=== PATIENT | female | born 1970 | race American Indian/Alaskan Native ===

== ENCOUNTER 2020-05-21 13:14 | Emergency (ER) | payer OTHER ==
--- NOTE | 2020-05-21 14:13 | Event Note ---
ED Screening Note ED Screening Note: states her BP was elevated states she has lightheadedness, nausea, CP has never taken blood pressure medication states she has not seen a PCP in 8 years no fever, vomiting, SOB, cough PMHx none no daily meds no allergies to meds LNMP: 04/08/2020 +former smoker This initial assessment/diagnostic orders/clinical plan/treatment(s) is/are subject to change based on patients health status, clinical progression and re- assessment by fellow clinical providers in the ED. Further treatment and workup at subsequent clinical providers discretion. Patient/guardian urged not to elope from the ED as their condition may be serious if not clinically assessed and managed. Initial orders include: labs, UA, EKG
--- NOTE | 2020-05-21 15:00 | XRay Report ---
CHEST 2 VIEWS INDICATION / CLINICAL INFORMATION: CP. COMPARISON: None available. FINDINGS: SUPPORT DEVICES: None. HEART / MEDIASTINUM: Borderline heart size. LUNGS / PLEURA: No significant pulmonary or pleural abnormality. No pneumothorax. ADDITIONAL FINDINGS: No significant additional findings. IMPRESSION: 1. Borderline heart size. No acute abnormality identified. Signer Name: Ana Ramos MD Signed: 05/21/2020 2:56 PM Workstation Name: [id number]
[2020-05-21 15:06] LABS: Basophils % (Auto) 0.8 % (0.0-1.8); Eosinophils # (Auto) 0.4 K/mm3 (0.0-0.4); Eosinophils % (Auto) 6.1 % (0.0-4.3); Hemoglobin 13.8 gm/dl (10.1-14.3); Lymphocytes # (Auto) 2.4 K/mm3 (1.2-5.4); Lymphocytes % (Auto) 40.1 % (13.4-35.0); Mean Corpuscular HGB Conc 34 % (30-34); Mean Corpuscular Volume 93 fl (79-97); Monocytes # (Auto) 0.3 K/mm3 (0.0-0.8); Monocytes % (Auto) 5.8 % (0.0-7.3); Platelet Count 169 K/mm3 (140-440); Red Cell Distribution Width 14.6 % (13.2-15.2)
[2020-05-21] MEDS ORDERED: amLODIPine 5 MG TAB PO ONE (15:16)
[2020-05-21] MEDS ORDERED: ACETAMINOPHEN 325 MG TAB PO ONE (15:16)
[2020-05-21 15:18] LABS: Bilirubin,Urine NEG (Negative); Blood,Urine NEG (Negative); Color,Urine Yellow (Yellow); Mucus,Urine FEW /HPF; Urobilinogen,Urine < 2.0 mg/dL (<2.0); WBC,Urine < 1.0 /HPF (0.0-6.0)
--- NOTE | 2020-05-21 15:22 | Emergency Department Report ---
ED Dizziness HPI - General Chief Complaint: Dizziness Stated Complaint: ELEVATED BLOOD PRESSURE Time Seen by Provider: 05/21/20 14:10 Source: patient Mode of arrival: Ambulatory Limitations: No Limitations - History of Present Illness Initial Comments: 49-year-old female with a history of tobacco abuse presents to the ER today with complaints of elevated blood pressure and dizzy. Patient states that for the past couple weeks she notes her blood pressure has been elevated. She states that she decided to check her blood pressure because she has been having intermittent dizziness for the past couple weeks. She states that her highest measured blood pressure was 180s over 100s. She denies any prior history of high blood pressure. She reports associated mild frontal headache intermittently. She states that she is also been having intermittent sharp left-sided chest pain that sometimes take her breath away for the past 2 to 3 months, as well as intermittent fluttering for the past 2 to 3 months. She states that she had Covid back in February and she has been having symptoms of shortness of breath since February but nothing worse recently. She states that this is her first time been evaluated since has been having the chest pain and dizziness and headache. She denies any speech changes, vision changes, focal weakness, numbness, tingling, vomiting or any other symptoms at this time. She states that she stopped smoking 16 days ago. She denies any history of coronary artery disease, lung disease, CVA/TIA, diabetes or any other si gnificant past history. Complaint: dizziness, other (Elevated Blood pressure) -: Sudden - Related Data Previous Rx's Medication Instructions Recorded Last Taken Type Amlodipine Besylate [Norvasc] 5 mg PO DAILY #30 tablet 05/21/20 Unknown Rx Allergies Allergy/AdvReac Type Severity Reaction Status Date / Time No Known Allergies Allergy Unverified 05/21/20 13:21 ED Review of Systems ROS: Stated complaint: ELEVATED BLOOD PRESSURE Other details as noted in HPI Comment: All other systems reviewed and negative Constitutional: denies: chills, fever Eyes: denies: eye pain, eye discharge, vision change ENT: denies: ear pain, throat pain Respiratory: shortness of breath (Since she had Covid back in February 2020). denies: cough, orthopnea, SOB with exertion, SOB at rest, wheezing Cardiovascular: chest pain (Left-sided, sharp in nature for the past 2 to 3 months), palpitations (Intermittently for the past 2 to 3 months). denies: dyspnea on exertion, orthopnea, edema, syncope Gastrointestinal: denies: abdominal pain, nausea, vomiting, diarrhea, constipation, hematemesis, melena, hematochezia Genitourinary: denies: urgency, dysuria, discharge Musculoskeletal: denies: back pain, joint swelling, arthralgia Skin: denies: rash, lesions Neurological: headache. denies: weakness, numbness, paresthesias, confusion, abnormal gait, vertigo Psychiatric: denies: anxiety, depression ED Past Medical Hx - Past Medical History Previous Medical History?: No - Surgical History Past Surgical History?: No - Medications Home Medications: Home Medications Medication Instructions Recorded Confirmed Last Taken Type Amlodipine Besylate [Norvasc] 5 mg PO DAILY #30 tablet 05/21/20 Unknown Rx ED Physical Exam - General Limitations: No Limitations General appearance: alert, in no apparent distress - Head Head exam: Present: atraumatic, normocephalic, normal inspection - Eye Eye exam: Present: normal appearance, PERRL, EOMI Pupils: Present: normal accommodation - ENT ENT exam: Present: normal exam, mucous membranes moist - Neck Neck exam: Present: normal inspection, full ROM - Respiratory Respiratory exam: Present: normal lung sounds bilaterally. Absent: respiratory distress - Cardiovascular Cardiovascular Exam: Present: regular rate, normal rhythm, normal heart sounds - GI/Abdominal GI/Abdominal exam: Present: soft. Absent: distended, tenderness, guarding, rebound - Extremities Exam Extremities exam: Present: normal inspection. Absent: pedal edema, calf tenderness - Neurological Exam Neurological exam: Present: alert, oriented X3, CN II-XII intact, normal gait. Absent: motor sensory deficit - Psychiatric Psychiatric exam: Present: normal affect, normal mood ED Course Vital Signs 05/21/20 05/21/20 05/21/20 13:22 15:25 15:26 Temperature 97.9 F Pulse Rate 84 84 Respiratory 16 18 Rate Blood Pressure 182/101 182/101 Blood Pressure [Left] O2 Sat by Pulse 100 Oximetry 05/21/20 05/21/20 17:45 17:46 Temperature Pulse Rate 72 Respiratory 17 Rate Blood Pressure Blood Pressure 170/94 [Left] O2 Sat by Pulse 99 Oximetry ED Medical Decision Making - Lab Data Result diagrams: 05/21/20 14:53 05/21/20 14:53 - EKG Data EKG shows normal: sinus rhythm Rate: normal (74) - EKG Data Interpretation: nonspecific ST-T wave malena, other (Inverted T waves lat leads) - Radiology Data Radiology results: report reviewed Patient: MUKUND JON MR#: [id number] : 1970 Acct:[id number] Age/Sex: 49 / F A DM Date: 05/21/20 Loc: ED Attending Dr: Ordering Physician: NICOL WONG Date of Service: 05/21/20 Procedure(s): XR chest routine 2V Accession Number(s): [id number] cc: NICOL WONG Fluoro Time In Minutes: CHEST 2 VIEWS INDICATION / CLINICAL INFORMATION: CP. COMPARISON: None available. FINDINGS: SUPPORT DEVICES: None. HEART / MEDIASTINUM: Borderline heart size. LUNGS / PLEURA: No significant pulmonary or pleural abnormality. No pneumothorax. ADDITIONAL FINDINGS: No significant additional findings. IMPRESSION: 1. Borderline heart size. No acute abnormality identified. Signer Name: Ana Ramos MD Signed: 05/21/2020 2:56 PM Workstation Name: [id number] Transcribed By: [facility] Dictated By: Ana Ramos MD Electronically Authenticated By: Ana Ramos MD Signed Date/Time: 05/21/20 5971 - Medical Decision Making The patient's care has been transferred to and accepted by[Aminah SAMPSON]. We discussed: The patient's chief complaints; labs and imaging that have been completed and those that are still pending; any treatment provided and the patient's response to treatment; any significant change in condition; the treatment plan prior to the transfer of care. The accepting provider will follow up on all pending labs and imaging and make any necessary changes to the current impression and/or treatment plan. The accepting physician/midlevel is now responsible for the patient's care and final disposition. Critical care attestation.: If time is entered above; I have spent that time in minutes in the direct care of this critically ill patient, excluding procedure time. ED Disposition Clinical Impression: Uncontrolled hypertension, Chest pain, atypical, Dizziness Disposition: DC-01 TO HOME OR SELFCARE Is pt being admited?: No Does the pt Need Aspirin: No Condition: Stable Instructions: Nonspecific Chest Pain, Adult, Hypertension, Adult, Gjta-by-Dljd, Dizziness, [id number]-rm-[id number], Hypertension (ED) Additional Instructions: Start taking the norvasc as prescribed. I recommend taking baby 81 mg asa daily. It is important that you follow up with the PCP listed on your d/c instructions for continued monitoring of your BP. Return to ED if symptoms worsens or changes in any way. Prescriptions: Amlodipine Besylate [Norvasc] 5 mg PO DAILY #30 tablet Referrals: YANELI TREVINO MD [Staff Physician] - 3-5 Days Time of Disposition: 17:13
[2020-05-21 15:31] LABS: Alanine Aminotransferase 18 units/L (7-56); Albumin 4.3 g/dL (3.9-5); BUN/Creatinine Ratio 18; Blood Urea Nitrogen 18 mg/dL (7-17); Calcium 9.5 mg/dL (8.4-10.2); Hemolysis Index 11
[2020-05-21 17:47] VITALS: BP 170/94
== END 2020-05-21 17:49 | disposition home or self-care (01) ==
LOC: ED 13:14
DX: R07.89 Other chest pain (principal); R42 Dizziness and giddiness; I10 Essential (primary) hypertension; Z79.899 Other long term (current) drug therapy
CPT/HCPCS: 36415; 71046; 80053; 81001; 84484; 85025; 93005

== ENCOUNTER 2020-09-15 08:14 | Emergency (ER) | payer OTHER ==
[2020-09-15 08:21] VITALS: BP 116/72
[2020-09-15] MEDS ORDERED: ONDANSETRON 4 MG/2 ML INJ IV ONE (09:08)
[2020-09-15] MEDS ORDERED: FAMOTIDINE 20 MG/2 ML INJ IV ONE (09:08)
[2020-09-15] MEDS ORDERED: DICYCLOMINE 20 MG TAB PO ONE (09:08)
[2020-09-15] MEDS ORDERED: SODIUM CHLORIDE 0.9% 1000 ML 1,000 ML IV ONE (09:08)
[2020-09-15] MEDS ORDERED: MORPHINE 4 MG/1 ML INJ IV ONE (09:08)
[2020-09-15 09:15] LABS: Basophils % (Auto) 0.4 % (0.0-1.8); Eosinophils # (Auto) 0.2 K/mm3 (0.0-0.4); Eosinophils % (Auto) 2.8 % (0.0-4.3); Hematocrit 37.6 % (30.3-42.9); Hemoglobin 12.9 gm/dl (10.1-14.3); Lymphocytes # (Auto) 1.7 K/mm3 (1.2-5.4); Lymphocytes % (Auto) 19.7 % (13.4-35.0); Mean Corpuscular HGB Conc 34 % (30-34); Mean Corpuscular Volume 93 fl (79-97); Monocytes # (Auto) 0.7 K/mm3 (0.0-0.8); Monocytes % (Auto) 7.6 % (0.0-7.3); Platelet Count 223 K/mm3 (140-440); Red Blood Count 4.03 M/mm3 (3.65-5.03); Red Cell Distribution Width 13.5 % (13.2-15.2)
[2020-09-15 09:24] LABS: Alanine Aminotransferase 49 units/L (7-56); Albumin 4.2 g/dL (3.9-5); BUN/Creatinine Ratio 17; Blood Urea Nitrogen 19 mg/dL (7-17); Calcium 9.7 mg/dL (8.4-10.2); Hemolysis Index 8
--- NOTE | 2020-09-15 09:49 | Emergency Department Report ---
ED Abdominal Pain HPI - General Chief Complaint: Abdominal Pain Stated Complaint: LOWER STOMACH CRAMPS, DIZZY, CAN'T BREATH Time Seen by Provider: 09/15/20 08:32 Source: patient Mode of arrival: Ambulatory Limitations: No Limitations - History of Present Illness Initial Comments: This is a 49-year-old female nontoxic, well nourished in appearance, no acute signs of distress presents to the ED with c/o of nausea and vomiting and abdominal pain 1 week. Patient describes vomiting as food content and yellow gastric acid. Patient describes abdominal pain as cramping and aching with level of 8/10 diffuse. Patient denies chest pain, short of breath, fever, hemoptysis, blood in stool, chills, headache, stiff neck, numbness or tingling. Patient denies any diarrhea. Patient stated has constipation but has taken OTC medication and had a bowel movement yesterday. Denies any blood in stool. Patient denies any recent travels. Patient denies any drug allergies. PMH includes HTN. MD Complaint: abdominal pain -: week(s) Location: diffuse Radiation: none Migration to: no migration Severity: mild Severity scale (0 -10): 8 Quality: cramping, aching Consistency: constant Improves With: nothing Worsens With: nothing Associated Symptoms: nausea, vomiting, constipation. denies: diarrhea, fever, chills, dysuria, hematemesis, hematochezia, melena, hematuria, anorexia, syncope - Related Data Previous Rx's Medication Instructions Recorded Last Taken Type Amlodipine Besylate [Norvasc] 5 mg PO DAILY #30 tablet 05/21/20 Unknown Rx Naproxen 500 mg PO Q12H PRN #12 tablet 09/15/20 Unknown Rx Ondansetron [Zofran Odt] 4 mg PO Q8H PRN #12 tab.rapdis 09/15/20 Unknown Rx Allergies Allergy/AdvReac Type Severity Reaction Status Date / Time No Known Allergies Allergy Unverified 05/21/20 13:21 ED Review of Systems ROS: Stated complaint: LOWER STOMACH CRAMPS, DIZZY, CAN'T BREATH Other details as noted in HPI Comment: All other systems reviewed and negative Constitutional: denies: chills, fever Eyes: denies: eye pain, eye discharge, vision change ENT: denies: ear pain, throat pain Respiratory: denies: cough, shortness of breath, wheezing Cardiovascular: denies: chest pain, palpitations Endocrine: no symptoms reported Gastrointestinal: abdominal pain, nausea, vomiting, constipation. denies: diarrhea, hematemesis, melena, hematochezia Genitourinary: denies: urgency, dysuria, discharge Musculoskeletal: denies: back pain, joint swelling, arthralgia Skin: denies: rash, lesions Neurological: denies: headache, weakness, paresthesias Psychiatric: denies: anxiety, depression Hematological/Lymphatic: denies: easy bleeding, easy bruising ED Past Medical Hx - Past Medical History Hx Hypertension: Yes - Surgical History Past Surgical History?: No - Social History Smoking Status: Never Smoker Substance Use Type: None - Medications Home Medications: Home Medications Medication Instructions Recorded Confirmed Last Taken Type Amlodipine Besylate [Norvasc] 5 mg PO DAILY #30 tablet 05/21/20 Unknown Rx Naproxen 500 mg PO Q12H PRN #12 tablet 09/15/20 Unknown Rx Ondansetron [Zofran Odt] 4 mg PO Q8H PRN #12 tab.rapdis 09/15/20 Unknown Rx ED Physical Exam - General Limitations: No Limitations General appearance: alert, in no apparent distress - Head Head exam: Present: atraumatic, normocephalic - Eye Eye exam: Present: normal appearance - Neck Neck exam: Present: normal inspection, full ROM. Absent: lymphadenopathy - Respiratory Respiratory exam: Present: normal lung sounds bilaterally. Absent: respiratory distress, wheezes, rales, rhonchi, stridor, chest wall tenderness, accessory muscle use, decreased breath sounds, prolonged expiratory - Cardiovascular Cardiovascular Exam: Present: regular rate, normal rhythm, normal heart sounds. Absent: bradycardia, tachycardia, irregular rhythm, systolic murmur, diastolic murmur, rubs, gallop - GI/Abdominal GI/Abdominal exam: Present: soft, tenderness (Diffuse with worse to bilateral lower abdomen), normal bowel sounds. Absent: distended, guarding, rebound, rigid, diminished bowel sounds - Extremities Exam Extremities exam: Present: normal inspection, full ROM, normal capillary refill. Absent: tenderness - Back Exam Back exam: Present: normal inspection, full ROM. Absent: tenderness, CVA tenderness (R), CVA tenderness (L), muscle spasm, paraspinal tenderness, vertebral tenderness, rash noted - Neurological Exam Neurological exam: Present: alert, oriented X3, normal gait - Psychiatric Psychiatric exam: Present: normal affect, normal mood - Skin Skin exam: Present: warm, dry, intact, normal color. Absent: rash ED Course Vital Signs 09/15/20 08:19 Temperature 98.6 F Pulse Rate 86 Respiratory 18 Rate Blood Pressure 116/72 O2 Sat by Pulse 99 Oximetry - Reevaluation(s) Reevaluation #1: 09/15/20 09:48 Patient is speaking in full sentences with no signs of distress noted. - Consultations Consultation #1: 09/15/20 13:33 Patient has been consulted with Virginia Wooten (DOCUMENT MANAGEMENT ANALYST) about patient hist ory, physical exam, and labs/imaging results and needs a hysterectomy and to follow-up in office in 3 to 5 days. ED Medical Decision Making - Lab Data Result diagrams: 09/15/20 08:49 09/15/20 08:49 Lab Results 09/15/20 09/15/20 09/15/20 Range/Units 08:49 08:49 08:49 WBC 8.6 (4.5-11.0) K/mm3 RBC 4.03 (3.65-5.03) M/mm3 Hgb 12.9 (10.1-14.3) gm/dl Hct 37.6 (30.3-42.9) % MCV 93 (79-97) fl MCH 32 (28-32) pg MCHC 34 (30-34) % RDW 13.5 (13.2-15.2) % Plt Count 223 (140-440) K/mm3 Lymph % (Auto) 19.7 (13.4-35.0) % Ralls % (Auto) 7.6 H (0.0-7.3) % Eos % (Auto) 2.8 (0.0-4.3) % Baso % (Auto) 0.4 (0.0-1.8) % Lymph # (Auto) 1.7 (1.2-5.4) K/mm3 Ralls # (Auto) 0.7 (0.0-0.8) K/mm3 Eos # (Auto) 0.2 (0.0-0.4) K/mm3 Baso # (Auto) 0.0 (0.0-0.1) K/mm3 Seg Neutrophils % 69.5 (40.0-70.0) % Seg Neutrophils # 6.0 (1.8-7.7) K/mm3 Sodium 135 L (137-145) mmol/L Potassium 4.0 (3.6-5.0) mmol/L Chloride 97.8 L (98-107) mmol/L Carbon Dioxide 27 (22-30) mmol/L Anion Gap 14 mmol/L BUN 19 H (7-17) mg/dL Creatinine 1.1 (0.6-1.2) mg/dL Estimated GFR > 60 ml/min BUN/Creatinine Ratio 17 % Glucose 100 (65-100) mg/dL Calcium 9.7 (8.4-10.2) mg/dL Total Bilirubin 0.40 (0.1-1.2) mg/dL AST 38 (5-40) units/L ALT 49 (7-56) units/L Alkaline Phosphatase 115 (35-129) units/L Total Protein 7.9 (6.3-8.2) g/dL Albumin 4.2 (3.9-5) g/dL Albumin/Globulin Ratio 1.1 % Lipase 28 (13-60) units/L HCG, Qual Negative (Negative) Urine Color (Yellow) Urine Turbidity (Clear) Urine pH (5.0-7.0) Ur Specific Shelton (1.003-1.030) Urine Protein (Negative) mg/dL Urine Glucose (UA) (Negative) mg/dL Urine Ketones (Negative) mg/dL Urine Blood (Negative) Urine Nitrite (Negative) Urine Bilirubin (Negative) Urine Urobilinogen (<2.0) mg/dL Ur Leukocyte Esterase (Negative) Urine WBC (Auto) (0.0-6.0) /HPF Urine RBC (Auto) (0.0-6.0) /HPF U Epithel Cells (Auto) (0-13.0) /HPF Urine Mucus /HPF 09/15/20 Range/Units 09:13 WBC (4.5-11.0) K/mm3 RBC (3.65-5.03) M/mm3 Hgb (10.1-14.3) gm/dl Hct (30.3-42.9) % MCV (79-97) fl MCH (28-32) pg MCHC (30-34) % RDW (13.2-15.2) % Plt Count (140-440) K/mm3 Lymph % (Auto) (13.4-35.0) % Ralls % (Auto) (0.0-7.3) % Eos % (Auto) (0.0-4.3) % Baso % (Auto) (0.0-1.8) % Lymph # (Auto) (1.2-5.4) K/mm3 Ralls # (Auto) (0.0-0.8) K/mm3 Eos # (Auto) (0.0-0.4) K/mm3 Baso # (Auto) (0.0-0.1) K/mm3 Seg Neutrophils % (40.0-70.0) % Seg Neutrophils # (1.8-7.7) K/mm3 Sodium (137-145) mmol/L Potassium (3.6-5.0) mmol/L Chloride (98-107) mmol/L Carbon Dioxide (22-30) mmol/L Anion Gap mmol/L BUN (7-17) mg/dL Creatinine (0.6-1.2) mg/dL Estimated GFR ml/min BUN/Creatinine Ratio % Glucose (65-100) mg/dL Calcium (8.4-10.2) mg/dL Total Bilirubin (0.1-1.2) mg/dL AST (5-40) units/L ALT (7-56) units/L Alkaline Phosphatase (35-129) units/L Total Protein (6.3-8.2) g/dL Albumin (3.9-5) g/dL Albumin/Globulin Ratio % Lipase (13-60) units/L HCG, Qual (Negative) Urine Color Yellow (Yellow) Urine Turbidity Clear (Clear) Urine pH 5.0 (5.0-7.0) Ur Specific Shelton 1.014 (1.003-1.030) Urine Protein 30 mg/dl (Negative) mg/dL Urine Glucose (UA) Neg (Negative) mg/dL Urine Ketones Neg (Negative) mg/dL Urine Blood Neg (Negative) Urine Nitrite Neg (Negative) Urine Bilirubin Neg (Negative) Urine Urobilinogen < 2.0 (<2.0) mg/dL Ur Leukocyte Esterase Neg (Negative) Urine WBC (Auto) 2.0 (0.0-6.0) /HPF Urine RBC (Auto) 2.0 (0.0-6.0) /HPF U Epithel Cells (Auto) 4.0 (0-13.0) /HPF Urine Mucus Few /HPF - Radiology Data [facility] [address] [place] [address] Cat Scan Report Signed Patient: MUKUND JON MR#: [id number] : 1970 Acct:[id number] Age/Sex: 49 / F ADM Date: 09/15/20 Loc: ED Attending Dr: Ordering Physician: AGGIE KISER NP Date of Service: 09/15/20 Procedure(s): CT abdomen pelvis w con Accession Number(s): [id number] cc: AGGIE KISER NP CT OF THE ABDOMEN AND PELVIS WITH INTRAVENOUS CONTRAST INDICATION / CLINICAL INFORMATION: Abdominal pain with nausea and vomiting. TECHNIQUE: The patient received 100 cc Omnipaque [address] scans at this location are performed using CT dose reduction for ALARA by means of automated exposure contr ol. COMPARISON: None available. FINDINGS: ABDOMEN: There is a subcentimeter simple cyst in the left lobe of the liver superiorly. The gallbladder, bile ducts, pancreas, spleen, adrenal glands, kidneys and bowel demonstrate no significant abnormality. No adenopathy is seen. The lung bases are clear. The heart is enlarged. PELVIS: The uterus is enlarged and lobulated and contains multiple fibroids. There is an 8 cm bilobed cystic mass in the uterine fundus, probably representing a necrotic fibroid. The ovaries are normal. There is mild free fluid in the cul-de-sac. The distal ureters and urinary bladder are normal. A normal appendix is present and there is no evidence of diverticulitis. There is mild diastases of the rectus sheath centered at the umbilicus without focal hernia. No acute osseous abnormality is seen. IMPRESSION: 1. Enlarged uterus containing multiple fibroids. There is a probable large necrotic fibroid in the uterine fundus. Mild free fluid in the cul-de-sac is probably physiologic. Transabdominal and transvaginal pelvic ultrasound may be helpful in further evaluation. 2. Cardiomegaly. Signer Name: William Garcia MD Signed: 09/15/2020 10:39 AM Workstation Name: [id number] Transcribed By: RT Dictated By: William Garcia MD Electronically Authenticated By: William Garcia MD Signed Date/Time: 09/15/20 1039 DD/ 1034 TD/TT: [facility] [address] [place] [address] Ultrasound Report Signed Patient: MUKUND JON MR#: [id number] : 1970 Acct:[id number] Age/Sex: 49 / F ADM Date: 09/15/20 Loc: ED Attending Dr: Ordering Physician: AGGIE KISER NP Date of Service: 09/15/20 Procedure(s): US pelvis duplex doppler comp Accession Number(s): [id number] cc: AGGIE KISER NP Pelvic Ultrasound HISTORY: pelvic pain with abnormal CT scans. TECHNIQUE: Grayscale and color imaging performed. COMPARISON: CT abdomen from today FINDINGS: Uterus measures 11.8 x 7.5 x 7.8 cm and contains at least 3 mixed echogenicity masses within the uterus the largest of which measures 5.7 cm in maximal dimension in the uterine fundal region. This largest fibroid in the fundus demonstrates some prominent internal low echogenicity which is more fluidlike and only has marginal blood flow. Both ovaries appear unremarkable. No significant pelvic free fluid. IMPRESSION: Multiple uterine fibroids, the largest of which is in the fundus as described. This fibroid appears to be necrotic. Signer Name: Tristen Salamanca MD Signed: 09/15/2020 1:14 PM Workstation Name: [id number] Transcribed By: Dictated By: Tristen Salamanca MD Electronically Authenticated By: Tristen Salamanca MD Signed Date/Time: 09/15/20 1314 DD/ 1312 TD/TT: - Medical Decision Making This is a 49-year-old female that presents with uterine fibroids with necrosis. Patient is stable and was examined by me. Patient was consulted with DOCUMENT MANAGEMENT ANALYST. Patient's pain is currently under control. Labs obtained. UA obtained. CT/ultrasound of abdomen/transvaginal/pelvic obtained and dictated by the radiologist. Patient is notified of the report with no questions noted by the patient. Vital signs are stable prior to discharge. Patient received medical treatment in the ED which patient stated symptoms has resovled and subsided. Was instructed note to operate any machinery due to possible drowsiness and stated someone will drive the patient home. A by mouth challenge has been obtained and patient tolerated well with no nausea vomiting. Patient was also instructed to Follow-up with a OBGYN doctor in 3-5 days or if symptoms worsen and continue return to emergency room as soon as possible. At time of discharge, the patient does not seem toxic or ill in appearance. No acute signs of distress noted. Patient agrees to discharge treatment plan of care. No further questions noted by the patient. Critical care attestation.: If time is entered above; I have spent that time in minutes in the direct care of this critically ill patient, excluding procedure time. ED Disposition Clinical Impression: Uterine fibroid Qualifiers: Uterine leiomyoma location: unspecified location Qualified Code(s): D25.9 - Leiomyoma of uterus, unspecified Disposition: TO HOME OR SELFCARE Is pt being admited?: No Does the pt Need Aspirin: No Condition: Stable Instructions: Abdominal Pain (ED), Uterine Fibroids, [id number] Additional Instructions: Follow-up with a OBGYN doctor in 3-5 days or if symptoms worsen and continue return to emergency room as soon as possible. Prescriptions: Naproxen 500 mg PO Q12H PRN #12 tablet PRN Reason: Pain , Severe (7-10) Ondansetron [Zofran Odt] 4 mg PO Q8H PRN #12 tab.rapdis PRN Reason: Nausea Referrals: PRIMARY CARE, [Primary Care Provider] - 3-5 Days VIRGINIA MONTANO MD [Staff Physician] - 3-5 Days Forms: Work/School Release Form(ED) Time of Disposition: 14:16
--- NOTE | 2020-09-15 11:15 | Cat Scan Report ---
CT OF THE ABDOMEN AND PELVIS WITH INTRAVENOUS CONTRAST INDICATION / CLINICAL INFORMATION: Abdominal pain with nausea and vomiting. TECHNIQUE: The patient received 100 cc Omnipaque [address] scans at this location are performed using CT dose reduction for ALARA by means of automated exposure control. COMPARISON: None available. FINDINGS: ABDOMEN: There is a subcentimeter simple cyst in the left lobe of the liver superiorly. The gallbladd er, bile ducts, pancreas, spleen, adrenal glands, kidneys and bowel demonstrate no significant abnorm ality. No adenopathy is seen. The lung bases are clear. The heart is enlarged. PELVIS: The uterus is enlarged and lobulated and contains multiple fibroids. There is an 8 cm bilobed cystic mass in the uterine fundus, probably representing a necrotic fibroid. The ovaries are normal. There is mild free fluid in the cul-de-sac. The distal ureters and urinary bladder are normal. A normal appendix is present and there is no evide nce of diverticulitis. There is mild diastases of the rectus sheath centered at the umbilicus without focal hernia. No acute osseous abnormality is seen. IMPRESSION: 1. Enlarged uterus containing multiple fibroids. There is a probable large necrotic fibroid in the ut erine fundus. Mild free fluid in the cul-de-sac is probably physiologic. Transabdominal and transvagi nal pelvic ultrasound may be helpful in further evaluation. 2. Cardiomegaly. Signer Name: William Garcia MD Signed: 09/15/2020 10:39 AM Workstation Name: [id number]
[2020-09-15 12:15] LABS: Bilirubin,Urine NEG (Negative); Blood,Urine NEG (Negative); Color,Urine Yellow (Yellow); Mucus,Urine FEW /HPF; Urobilinogen,Urine < 2.0 mg/dL (<2.0)
--- NOTE | 2020-09-15 13:18 | Ultrasound Report ---
Pelvic Ultrasound HISTORY: pelvic pain with abnormal CT scans. TECHNIQUE: Grayscale and color imaging performed. COMPARISON: CT abdomen from today FINDINGS: Uterus measures 11.8 x 7.5 x 7.8 cm and contains at least 3 mixed echogenicity masses withi n the uterus the largest of which measures 5.7 cm in maximal dimension in the uterine fundal region. This largest fibroid in the fundus demonstrates some prominent internal low echogenicity which is mor e fluidlike and only has marginal blood flow. Both ovaries appear unremarkable. No significant pelvic free fluid. IMPRESSION: Multiple uterine fibroids, the largest of which is in the fundus as described. This fibro id appears to be necrotic. Signer Name: Tristen Salamanca MD Signed: 09/15/2020 1:14 PM Workstation Name: [id number]
== END 2020-09-15 15:11 | disposition home or self-care (01) ==
LOC: ED 08:14
DX: D25.9 Leiomyoma of uterus, unspecified (principal); R11.2 Nausea with vomiting, unspecified; I10 Essential (primary) hypertension; Z79.899 Other long term (current) drug therapy
CPT/HCPCS: 36415; 74177; 80053; 81001; 83690; 84703; 85025; 93975; 96361; 96374; 96375; 99284; J2270; J2405; J7030; Q9967

== ENCOUNTER 2021-05-12 10:19 | Emergency (ER) | payer OTHER ==
[2021-05-12] MEDS ORDERED: IBUPROFEN 800 MG TAB PO ONE (12:39)
--- NOTE | 2021-05-12 13:16 | XRay Report ---
RIGHT HAND 3 VIEWS INDICATION / CLINICAL INFORMATION: Pain in right hand, especially along thumb. COMPARISON: None available. FINDINGS: BONES and JOINT(S): No acute fracture or subluxation. No significant arthritis. SOFT TISSUES: No significant abnormality. ADDITIONAL FINDINGS: None. IMPRESSION: 1. No acute findings. Signer Name: Roland Rosario MD Signed: 05/12/2021 1:11 PM Workstation Name: [id number]
--- NOTE | 2021-05-12 13:24 | Emergency Department Report ---
ED Upper Extremity Inj HPI - General Chief Complaint: Extremity Injury, Upper Stated Complaint: SHARP IN RT ARM Time Seen by Provider: 05/12/21 11:39 Source: patient Mode of arrival: Ambulatory Limitations: No Limitations - History of Present Illness Initial Comments: This is a 50-year-old female nontoxic, well nourished in appearance, no acute signs of distress presents to the ED with c/o of right thumb pain 2 months. Patient denies any injuries or trauma. Patient denies any numbness, tingling, fever, chills, nausea, vomiting, chest pain, shortness of breath, headache, stiff neck. Patient denies any joint swelling or joint redness. Patient denies decreased ROM but stated has some pain with ROM. Patient denies any allergies. MD Complaint: Injury to:: right, finger -: month(s) (2) Other Extremity Injury: Fingers: Right Severity scale (0 -10): 8 Improves With: immobilization Worsens With: movement of extremity Associated Symptoms: denies other symptoms. denies: weakness, numbness, neck pain, suspects foreign body, nausea/vomiting, heard/felt popping sensat - Related Data Previous Rx's Medication Instructions Recorded Last Taken Type Amlodipine Besylate [Norvasc] 5 mg PO DAILY #30 tablet 05/21/20 Unknown Rx Naproxen 500 mg PO Q12H PRN #12 tablet 09/15/20 Unknown Rx Ondansetron [Zofran Odt] 4 mg PO Q8H PRN #12 tab.rapdis 09/15/20 Unknown Rx Acetaminophen [Acetaminophen 8 650 mg PO Q8H PRN #12 tab 05/12/21 Unknown Rx Hour] Allergies Allergy/AdvReac Type Severity Reaction Status Date / Time No Known Allergies Allergy Verified 05/12/21 10:27 ED Review of Systems ROS: Stated complaint: SHARP IN RT ARM Other details as noted in HPI Comment: All other systems reviewed and negative Constitutional: denies: chills, fever Eyes: denies: eye pain, eye discharge, vision change ENT: denies: ear pain, throat pain Respiratory: denies: cough, shortness of breath, wheezing Cardiovascular: denies: chest pain, palpitations Endocrine: no symptoms reported Gastrointestinal: denies: abdominal pain, nausea, diarrhea Genitourinary: denies: urgency, dysuria, discharge Musculoskeletal: denies: back pain, joint swelling, arthralgia Skin: denies: rash, lesions Neurological: denies: headache, weakness, paresthesias Psychiatric: denies: anxiety, depression Hematological/Lymphatic: denies: easy bleeding, easy bruising ED Past Medical Hx - Past Medical History Previous Medical History?: Yes Hx Hypertension: Yes - Surgical History Past Surgical History?: No - Social History Smoking Status: Never Smoker Substance Use Type: None - Medications Home Medications: Home Medications Medication Instructions Recorded Confirmed Last Taken Type Amlodipine Besylate [Norvasc] 5 mg PO DAILY #30 tablet 05/21/20 Unknown Rx Naproxen 500 mg PO Q12H PRN #12 tablet 09/15/20 Unknown Rx Ondansetron [Zofran Odt] 4 mg PO Q8H PRN #12 tab.rapdis 09/15/20 Unknown Rx Acetaminophen [Acetaminophen 8 650 mg PO Q8H PRN #12 tab 05/12/21 Unknown Rx Hour] ED Physical Exam - General Limitations: No Limitations General appearance: alert, in no apparent distress - Head Head exam: Present: atraumatic, normocephalic - Eye Eye exam: Present: normal appearance - Neck Neck exam: Present: full ROM. Absent: lymphadenopathy - Respiratory Respiratory exam: Absent: respiratory distress - Cardiovascular Cardiovascular Exam: Present: regular rate - Extremities Exam Extremities exam: Present: full ROM, tenderness, normal capillary refill. Absent: joint swelling - Expanded Upper Extremity Exam Right General: Present: normal inspection Shoulder Exam: Present: normal inspection, full ROM. Absent: tenderness, swelling Upper Arm exam: Present: normal inspection, full ROM. Absent: tenderness, swelling Elbow exam: Present: normal inspection, full ROM. Absent: tenderness, swelling Forearm Wrist exam: Present: normal inspection, full ROM. Absent: tenderness, swelling, abrasion, laceration, ecchymosis, deformity, crepidus, dislocation, erythema, tenderness over anatomical snuff box, pain with axial thumb loading Hand Wrist exam: Present: full ROM, tenderness. Absent: swelling, abrasion, laceration, ecchymosis, deformity, crepidus, dislocation, erythema, amputation, nail avulsion, subungual hematoma Vascular: Present: normal capillary refill. Absent: vascular compromise (Neurovascular within normal limits) - Back Exam Back exam: Present: full ROM - Neurological Exam Neurological exam: Present: alert, oriented X3, normal gait - Psychiatric Psychiatric exam: Present: normal affect, normal mood - Skin Skin exam: Present: warm, dry, intact, normal color. Absent: rash ED Course Vital Signs 05/12/21 05/12/21 10:25 12:58 Temperature 98.2 F Pulse Rate 94 H Respiratory 14 16 Rate Blood Pressure 146/101 O2 Sat by Pulse 100 Oximetry - Reevaluation(s) Reevaluation #1: 05/12/21 13:25 Patient is speaking in full sentences with no signs of distress noted. ED Medical Decision Making - Radiology Data [facility] [address] [place] [address] XRay Report Signed Patient: MUKUND JON MR#: [id number] : 1970 Acct:[id number] Age/Sex: 50 / F ADM Date: 05/12/21 Loc: ED Attending Dr: Ordering Physician: AGGIE KISER NP Date of Service: 05/12/21 Procedure(s): XR hand 3+V RT Accession Number(s): [id number] cc: AGGIE KISER NP Fluoro Time In Minutes: RIGHT HAND 3 VIEWS INDICATION / CLINICAL INFORMATION: Pain in right hand, especially along thumb. COMPARISON: None available. FINDINGS: BONES and JOINT(S): No acute fracture or subluxation. No significant arthritis. SOFT TISSUES: No significant abnormality. ADDITIONAL FINDINGS: None. IMPRESSION: 1. No acute findings. Signer Name: Roland Rosario MD Signed: 05/12/2021 1:11 PM Workstation Name: [id number] Transcribed By: FATOU Dictated By: Roland Rosario MD Electronically Authenticated By: Roland Rosario MD Signed Date/Time: 05/12/21 1311 DD/ 1310 TD/TT: - Medical Decision Making This is a 50-year-old female that presents with right thumb strain. Patient is stable and was examined by me. I referred patient to an orthopedic doctor for further evaluation for possible MRI. X-ray has been obtained and dictated by the radiologist. Patient is notified of the x-ray report with noted by the patient. Patient does have normal ROM with some tenderness and no joint swelling. No ecchymosis. no joint redness or swelling. Not warm to touch. No signs of cellulites present. Patient was instructed to RICE therapy. Patient is discharged with Tylenol. At time of discharge, the patient does not seem toxic or ill in appearance. No acute signs of distress noted. Patient agrees to discharge treatment plan of care. No further questions noted by the patient. Critical care attestation.: If time is entered above; I have spent that time in minutes in the direct care of this critically ill patient, excluding procedure time. ED Disposition Clinical Impression: Strain of thumb, right Disposition: 01 HOME / SELF CARE / HOMELESS Is pt being admited?: No Does the pt Need Aspirin: No Condition: Stable Instructions: RICE Therapy for Routine Care of Injuries, [id number] Additional Instructions: Follow-up with a orthopedic doctor in 3-5 days or if symptoms worsen and continue return to emergency room as soon as possible. No physical activity that extremity until cleared by orthopedic doctor Prescriptions: Acetaminophen [Acetaminophen 8 Hour] 650 mg PO Q8H PRN #12 tab PRN Reason: Pain , Severe (7-10) Referrals: PRIMARY MD ERIC [Primary Care Provider] - 3-5 Days BEAU PAGE MD [Staff Physician] - 3-5 Days Time of Disposition: 13:36
[2021-05-12 15:11] VITALS: BP 159/96
== END 2021-05-12 15:11 | disposition home or self-care (01) ==
LOC: ED 10:19
DX: S56.011A Strain of flexor muscle, fascia and tendon of right thumb at forearm level, initial encounter (principal); X58.XXXA Exposure to other specified factors, initial encounter; Y93.89 Activity, other specified; Y92.89 Other specified places as the place of occurrence of the external cause; Y99.8 Other external cause status
CPT/HCPCS: 99283